=== PATIENT | female | born 1955 | race Caucasian/White ===

== ENCOUNTER 2017-09-27 14:32 | Inpatient (IN) | payer BC ==
[~2017-09-27] VITALS: Ht 157.5 cm; Wt 132.9 kg
[2017-09-27] MEDS ORDERED: MORPHINE SULFATE 2 MG/ML SYR IV PRN (15:30)
[2017-09-27] MEDS ORDERED: LEXAPRO10 MG PO (17:26)
[2017-09-27] MEDS ORDERED: CIPRO500 MG PO (17:26)
[2017-09-27] MEDS ORDERED: ASPIRIN81 MG PO (17:26)
[2017-09-27] MEDS ORDERED: ATORVASTATIN CA20 MG PO (17:26)
[2017-09-27] MEDS ORDERED: BACLOFEN10 MG PO (17:26)
[2017-09-27] MEDS ORDERED: DIAZEPAM5 MG PO (17:26)
[2017-09-27] MEDS ORDERED: LYRICA50 MG PO (17:26)
[2017-09-27] MEDS ORDERED: VITAMIN D250000 UNIT PO (17:26)
[2017-09-27] MEDS ORDERED: OXYCONTIN10 MG PO (17:26)
[2017-09-27] MEDS ORDERED: FUROSEMIDE40 MG PO (17:26)
[2017-09-27] MEDS ORDERED: COREG12.5 MG PO (17:26)
[2017-09-27] MEDS ORDERED: PERCOCET 10-321 EACH PO (17:26)
[2017-09-27] MEDS ORDERED: DOXYCYCLINE HY100 MG PO (17:26)
[2017-09-27] MEDS ORDERED: FERROUS SULFAT325 MG PO (17:26)
[2017-09-27] MEDS ORDERED: POTASSIUM CHLO10 ME1 PO (17:26)
[2017-09-27] MEDS ORDERED: NORVASC5 MG PO (17:26)
[2017-09-27] MEDS ORDERED: METHOTREXATE2.5 MG PO (17:26)
[2017-09-27 17:29] LABS: BASOPHILS # (AUTO) 0.1 (0.0-0.1); BASOPHILS % 0.9 % (0.0-1.0); EOSINOPHILS # (AUTO) 0.7 (0.0-0.4); EOSINOPHILS % 12.2 % (0.0-6.0); HEMATOCRIT 36.1 % (34.2-44.1); HEMOGLOBIN 11.1 g/dL (12.0-16.0); LYMPHOCYTES # (AUTO) 1.6 (1.0-3.2); LYMPHOCYTES % 27.2 % (18.0-39.1); MEAN CORPUSCULAR HEMOGLOBIN 26.3 pg (28-32); MEAN CORPUSCULAR HGB CONC 30.7 g/dL (31-35); MEAN CORPUSCULAR VOLUME 85.5 fL (81-99); MONOCYTES # (AUTO) 0.8 (0.2-0.8); MONOCYTES % 13.2 % (4.4-11.3); NEUTROPHILS # (AUTO) 2.7 (2.1-6.9); NEUTROPHILS % 46.2 % (38.7-80.0); PLATELET COUNT 209 x10e3/uL (140-360); RED BLOOD COUNT 4.22 x10e6/uL (3.6-5.1)
[2017-09-27 17:35] LABS: CLARITY,URINE CLEAR (CLEAR); COLOR,URINE YELLOW (YELLOW); KETONES,URINE NEGATIVE (NEGATIVE); LEUKOCYTE ESTERASE ,URINE NEGATIVE (NEGATIVE); NITRITE,URINE NEGATIVE (NEGATIVE); PROTEIN,URINE DIPSTICK NEGATIVE (NEGATIVE); URINE UROBILINOGEN 0.2 mg/dL (0.2 - 1)
[2017-09-27 17:36] LABS: BILIRUBIN,URINE NEGATIVE (NEGATIVE)
[2017-09-27 17:38] LABS: ALBUMIN 3.7 g/dL (3.5-5.0); ALBUMIN/GLOBULIN RATIO 0.9 (0.8-2.0); ANION GAP 12.9 mmol/L (8-16); CALCIUM 9.6 mg/dL (8.4-10.2); CREATININE, SERUM 0.94 mg/dL (0.57-1.11); POTASSIUM 3.9 mmol/L (3.5-5.1)
[2017-09-27 17:41] LABS: EPITHELIAL CELLS,URINE FEW /LPF
[2017-09-27] MEDS: MEROPENEM 500 MG VIAL IV SCH (17:47)
[2017-09-27] MEDS: VANCOMYCIN 1GM/NS 250 ML 250 ML IV SCH (17:47)
[2017-09-27] MEDS ORDERED: MEROPENEM 500MG 500 MG in SODIUM CHLORIDE 0.9% 50ML 50 ML IV SCH (18:00)
[2017-09-27 20:00] VITALS: BP 160/69
[2017-09-27] MEDS ORDERED: KETOROLAC TROMETHAMINE 30 MG/ML VIAL IV STA (20:06)
[2017-09-27 23:45] VITALS: BP 160/69
[2017-09-28] VITALS (7 sets, daily range): BP systolic 140–172; BP diastolic 52–82
[2017-09-28] MEDS: MEROPENEM 500 MG VIAL IV SCH ×5 (00:04→23:32)
[2017-09-28] MEDS: MORPHINE SULFATE 2 MG/ML SYR IV PRN ×5 (00:04→19:45)
[2017-09-28] MEDS: CARVEDILOL 12.5 MG TAB PO SCH ×2 (00:31→09:00)
[2017-09-28] MEDS ORDERED: SODIUM CHLORIDE 0.9% 250ML 250 ML ONE (03:46)
[2017-09-28] MEDS: VANCOMYCIN 1GM/NS 250 ML 250 ML IV SCH ×2 (04:12→15:17)
[2017-09-28 06:15] LABS: BASOPHILS % 0.6 % (0.0-1.0); EOSINOPHILS # (AUTO) 0.7 (0.0-0.4); EOSINOPHILS % 10.3 % (0.0-6.0); HEMATOCRIT 37.8 % (34.2-44.1); HEMOGLOBIN 11.6 g/dL (12.0-16.0); LYMPHOCYTES # (AUTO) 1.2 (1.0-3.2); LYMPHOCYTES % 16.3 % (18.0-39.1); MEAN CORPUSCULAR HEMOGLOBIN 26.3 pg (28-32); MEAN CORPUSCULAR HGB CONC 30.7 g/dL (31-35); MEAN CORPUSCULAR VOLUME 85.7 fL (81-99); MONOCYTES # (AUTO) 0.7 (0.2-0.8); MONOCYTES % 10.2 % (4.4-11.3); NEUTROPHILS # (AUTO) 4.5 (2.1-6.9); NEUTROPHILS % 62.3 % (38.7-80.0); PLATELET COUNT 230 x10e3/uL (140-360); RED BLOOD COUNT 4.41 x10e6/uL (3.6-5.1); RED CELL DISTRIBUTION WIDTH 21.9 % (11.7-14.4)
[2017-09-28 06:34] LABS: ALBUMIN 3.4 g/dL (3.5-5.0); ALBUMIN/GLOBULIN RATIO 0.9 (0.8-2.0); ANION GAP 14.3 mmol/L (8-16); CALCIUM 9.5 mg/dL (8.4-10.2); CREATININE, SERUM 1.06 mg/dL (0.57-1.11); POTASSIUM 4.3 mmol/L (3.5-5.1)
[2017-09-28 08:04] LABS: HYPOCHROMASIA SLIGHT; STOMATOCYTES MODERATE
[2017-09-28 08:05] LABS: ANISOCYTOSIS SLIG; PLATELET ESTIMATE ADEQUATE; PLATELET MORPHOLOGY COMMENT NORMAL; POIKILOCYTOSIS SLIGHT; RBC MORPHOLOGY COMMENT NORMAL
[2017-09-28] MEDS: AMLODIPINE BESYLATE 10 MG TAB PO SCH (15:16)
[2017-09-28] MEDS: FUROSEMIDE 40 MG TAB PO SCH (15:17)
[2017-09-28] MEDS: FERROUS SULFATE 325 MG TAB PO SCH (15:40)
[2017-09-28] MEDS: DIAZEPAM 5 MG TAB PO SCH (15:40)
[2017-09-28] MEDS ORDERED: NON-FORMULARY MEDICATION (Oxycodone Hcl/Acetaminophen (Percocet 10-325 Mg Tablet) 1 TAB) PO PRN (17:00)
[2017-09-28] MEDS ORDERED: ATORVASTATIN 20 MG TAB PO SCH (21:00)
[2017-09-28] MEDS: ATORVASTATIN 40 MG TAB PO SCH (22:00)
[2017-09-28] MEDS: PREGABALIN 50 MG CAP PO SCH (22:00)
[2017-09-28] MEDS ORDERED: DEXTROSE 5%/0.45% SOD CHL 1,000 ML IV ONE (23:45)
[2017-09-29] MEDS: OXYCODONE/ACETAMINOPHEN 5-325 1 EACH TABLET PO PRN ×2 (00:08→22:40)
[2017-09-29] MEDS: MORPHINE SULFATE 2 MG/ML SYR IV PRN ×5 (01:11→21:12)
[2017-09-29] MEDS: ONDANSETRON HCL INJ 2 MG/ML VIAL IV PRN ×2 (01:12→21:12)
[2017-09-29] MEDS: CARVEDILOL 12.5 MG TAB PO SCH ×3 (01:57→21:11)
--- NOTE | 2017-09-29 01:57 | History and Physical ---
REASON FOR CONSULTATION: Nonhealing wound on the back. HISTORY OF PRESENT ILLNESS: This patient who is well known to me. She is a 62-year-old white female, history of morbidly obese patient. She has chronic pain and she is seeing pain management. She does have a pain management doctor. A pain pump was placed couple of years ago. The patient developed ulcer on her back a few centimeters away from her pain pump. Patient originally was treated with IV antibiotic as an outpatient, then she was admitted to the hospital for a couple of days on different time. Then, we switched her to oral antibiotic. The patient has been on intravenous antibiotic on and off since last May. The patient will get better, but then the wound will get worse again. I had referred her to her pain management doctor, but he felt that the pump is not the reason because it is away from the wound. So the patient most recently was treated with intravenous antibiotic and then switched to oral antibiotic. Initially, it was getting better, but on the followup visit a few days ago, the wound looked a lot worse, and necrotic tissue. I have discussed with her that I am really concerned about the pain pump, but she does need wound debridement. The patient did agree to come in and underwent debridement. This patient who is currently lying in bed comfortably. PAST MEDICAL HISTORY: Morbidly obese patient, severe pain, hypertension, neuropathy. PAST SURGICAL HISTORY: Pain pump placement. ALLERGIES: PENICILLIN, BUT SHE DID WELL WITH CEPHALOSPORIN. REVIEW OF SYSTEMS: HEENT: There is no headache, visual changes, or hearing changes. GI: There is no nausea, no vomiting, no diarrhea. CARDIAC: There is no arrhythmia or chest pain. NEURO: No seizure activity. SKIN: There is no other rash. MUSCULOSKELETAL: She has chronic aches and pain. There is no new finding on her review of systems. Ten-point system reviewed with patient, all negative. MEDICATIONS: She is on: 1. Norvasc. 2. Lipitor. 3. . 4. Coreg. 5. Valium. 6. Lexapro. 7. Iron sulfate 325 daily. 8. Lasix 40 mg p.o. daily. 9. Methotrexate. 10. Morphine. 11. Her amlodipine is 5 mg p.o. daily. 12. Her aspirin is 81 mg daily. 13. Atorvastatin 40 mg p.o. nightly. 14. Baclofen 10 mg p.o. 2 daily. 15. Coreg 12.5 mg daily. 16. She was on oral Cipro 500 mg p.o. b.i.d. 17. She is on diazepam 2.5 mg p.o. b.i.d. 18. Doxycycline 100 mg p.o. b.i.d. 19. She is on Vitamin D2 50,000 units. 20. She is on Lexapro 10 mg p.o. 2 of them daily. 21. OxyContin 10 mg p.o. daily. 22. Percocet 10 per 325 p.o. q.6h. p.r.n. 23. Potassium chloride. LABORATORY DATA: Reviewed. Her white count is 7.17, hemoglobin is 11.6, hematocrit 37, platelet of . Her sodium 144, potassium 4.3. Creatinine 1.06, came down to 0.94. Albumin 3.4. PHYSICAL EXAMINATION: GENERAL: She is currently alert and oriented, does not seem to be in acute distress. VITALS: Stable, currently afebrile. HEENT: Normocephalic. Does not appear icteric. NECK: Supple. CHEST: Clear bilaterally. HEART: S1 and S2. No S3, S4, or murmur. ABDOMEN: Soft, obese. SKIN: She has a decubitus ulcer on the buttock area. It is about 4 x 4 cm deep with necrotic tissue. EXTREMITIES: No edema. IMPRESSION: 1. Decubitus ulcer, infected. Would need surgical debridement. Discussed with the patient. Discussed with the surgery, Dr. Mcmahan. Will start on intravenous antibiotic, but there is a good chance that she may end up losing the pain pump. The plan is to do debridement tomorrow. If debriding the necrotic tissue led to the pump, then we have to remove it, but if still away, then will try to save it. In the meantime, will put her on meropenem and vancomycin. Will follow with you. Will get the cultures. 2. Hypertension. 3. Neuropathy. 4. Morbidly obese patient. Thank you for asking me to see this patient. Job#: [id number]
[2017-09-29] MEDS: VANCOMYCIN 1GM/NS 250 ML 250 ML IV SCH ×2 (04:00→16:52)
[2017-09-29] MEDS: MEROPENEM 500 MG VIAL IV SCH ×4 (05:26→23:57)
[2017-09-29 08:08] VITALS: BP 155/71
[2017-09-29] MEDS ORDERED: OXYCODONE HCL 10 MG TAB CR PO SCH (09:00)
[2017-09-29] MEDS: PREGABALIN 50 MG CAP PO SCH ×3 (09:00→21:11)
[2017-09-29] MEDS: FERROUS SULFATE 325 MG TAB PO SCH ×2 (09:00→16:52)
[2017-09-29] MEDS ORDERED: AMLODIPINE BESYLATE 5 MG TAB PO SCH (09:00)
[2017-09-29] MEDS ORDERED: PREGABALIN 50 MG CAP PO SCH (09:00)
[2017-09-29] MEDS: OXYCODONE HCL 20 MG TAB CR PO SCH (09:00)
[2017-09-29] MEDS: DIAZEPAM 5 MG TAB PO SCH ×2 (09:00→16:52)
[2017-09-29] MEDS: POTASSIUM CHLORIDE 10 MEQ TABCR PO SCH (09:00)
[2017-09-29] MEDS: BACLOFEN 10 MG TAB PO SCH ×2 (09:00→23:57)
[2017-09-29] MEDS: FUROSEMIDE 40 MG TAB PO SCH (09:00)
[2017-09-29] MEDS: ESCITALOPRAM OXALATE 10 MG TAB PO SCH ×2 (09:00→22:11)
[2017-09-29] MEDS: METHOTREXATE SOD 2.5 MG TAB PO SCH (09:00)
[2017-09-29 09:15] VITALS: BP 155/71
[2017-09-29] MEDS: AMLODIPINE BESYLATE 10 MG TAB PO SCH (09:15)
[2017-09-29] MEDS ORDERED: MUPIROCIN 2% OINT 22 GM TUBE ONE (12:15)
[2017-09-29] MEDS ORDERED: BACITRACIN 50,000 UNIT VIAL ONE (12:15)
[2017-09-29] MEDS ORDERED: BUPIVACAINE HCL 0.5% INJ 30 ML VIAL INJ ONE (13:08)
[2017-09-29] MEDS ORDERED: FENTANYL CITRATE/PF 100MCG/2 ML INJ ONE ×2 (14:01→17:59)
[2017-09-29 14:27] VITALS: BP 151/69
--- NOTE | 2017-09-29 15:16 | Operative Report ---
DATE OF PROCEDURE: PREOPERATIVE DIAGNOSIS: Wound left buttock, possible infected pain pump. POSTOPERATIVE DIAGNOSIS: Partial thickness wound left buttock. PROCEDURE: Excision of necrotic wound left buttock and layered closure of soft tissues. ANESTHESIA: General. INDICATIONS: The patient is a 62-year-old female who has an indwelling pain pump that was placed approximately 2010. She has a wound directly over the pain pump of an undetermined thickness, and there is concern that it may communicate with the pump and there may be infection in and around the pump. The risks, benefits and alternatives of treatment were discussed with the patient and her . They are prepared to undergo the procedures outlined. DETAILS OF PROCEDURE: Patient was marked preoperatively in the holding area. She was brought to the operating theater, and after the induction of adequate general anesthesia, she was prepped and draped in a right lateral decubitus position. A time out was performed. The procedure was begun by marking out the necrotic tissue approximately 1 to 1.5 cm beyond the edges of the wound. The incisions were marked out. The incisions were then made through the skin and subcutaneous tissues. All bleeding was controlled using the electrocautery. The incision was deepened through the subcutaneous tissues until the entire necrotic portion of the wound was completely excised. The wound did not communicate with the space around the pump, and there was no evidence of separation or of any abscess formation. The necrotic wound was then sent for permanent pathologic examination. The wound was irrigated with antibiotic-containing saline and was made hemostatic using the electrocautery. A layered closure was performed utilizing 2-0 Vicryl in interrupted fashion to close the subcutaneous space off and finally 2-0 nylon in an interrupted horizontal mattress fashion to approximate the epidermis and dermal tissues. Xeroform gauze, Bactroban ointment and a sterile dressing were applied. The estimated blood loss of the procedure was approximately 15 to 25 mL. She tolerated the procedure well, was brought to the recovery room in satisfactory condition. She was then readmitted to her hospital bed for further care and treatment. Job#: [id number] EV
--- NOTE | 2017-09-29 16:11 | Consultation ---
DATE OF CONSULTATION: September 29, 2017 NO DICTATION Job#: [id number] DG
--- NOTE | 2017-09-29 16:17 | Consultation ---
DATE OF CONSULTATION: September 28, 2017 PLASTIC SURGERY CONSULTATION REQUESTED BY: Dr. Tanner. CONSULTATION IS REQUESTED OF: Janneth Mcmahan, Plastic Surgery. CHIEF COMPLAINT: Possible infected pain pump left buttock. HISTORY OF PRESENT ILLNESS: The patient is a 62-year-old female who states that she had an indwelling epidural pain pump placed approximately 2010. The pain pump was placed in the left buttock region. Around May or so she noticed breakdown of the skin directly over the pain pump. Local wound care was initiated; however, the process continued and there is now necrotic skin and subcutaneous tissue in the area. There is concern that this communicates with the space around the pain pump and that there may be infection around the pump. Consultation is now requested for evaluation and management. The history of present illness is as noted above. PERTINENT PHYSICAL EXAMINATION: The patient is afebrile. The white blood cell count is 4.5. There is a 2.5 cm long by 1.5 cm wide what appears to be full thickness necrotic wound directly over the pain pump in the region of the left buttock. There is no purulence noted with the wound. Digital examination of the wound reveals the pain pump within the tissues beneath it, however there is no visible exposed pain pump. There is a surrounding area of erythema however there does not appear to be a significant purulent component to this wound. IMPRESSION: Wound with undetermined thickness. PLAN: The depth of the wound cannot be determined accurately on physical exam. There is a possibility that this wound communicates with the pain pump and that there is infection in and around the pain pump which would necessitate removal of the pain pump. I feel the best course of action would be to take the patient to the OR and excise the entire wound and then at that time make a determination whether there is infection around the pain pump and whether it needs to be removed or whether it can remain. This was discussed with the patient in detail. The patient will be scheduled for surgery on 09/29. Thank you for allowing us to participate in the care of your patient. Sincerely, Job#: [id number] JANIS
[2017-09-29 16:25] VITALS: BP 144/62
[2017-09-29] MEDS ORDERED: LIDOCAINE HCL 2% LOCAL INJ 5 ML SDV VIAL INJ ONE (17:37)
[2017-09-29] MEDS ORDERED: ONDANSETRON HCL INJ 2 MG/ML VIAL ONE (17:37)
[2017-09-29] MEDS ORDERED: ROCURONIUM BROMIDE 10 MG/ML 5ML VIAL ONE (17:37)
[2017-09-29] MEDS ORDERED: GLYCOPYRROLATE INJ 1MG/ 5 ML SYR ONE (17:37)
[2017-09-29] MEDS ORDERED: SEVOFLURANE INHAL SOLN 250 ML PEN BTL ONE (17:37)
[2017-09-29] MEDS ORDERED: PROPOFOL IV EMULSION 10 MG/ML 20 ML VIAL ONE (17:37)
[2017-09-29] MEDS ORDERED: SUCCINYLCHOLINE 200 MG/10 ML SYR ONE (17:37)
[2017-09-29] MEDS ORDERED: MIDAZOLAM HCL 2 MG/2 ML VIAL ONE (17:59)
[2017-09-29 20:15] VITALS: BP 180/77
[2017-09-29] MEDS: ATORVASTATIN 40 MG TAB PO SCH (21:11)
[2017-09-30] VITALS (7 sets, daily range): BP systolic 97–161; BP diastolic 49–80
[2017-09-30] MEDS: DIAZEPAM 5 MG TAB PO SCH ×3 (00:15→17:00)
[2017-09-30] MEDS: MEROPENEM 500 MG VIAL IV SCH ×3 (05:29→18:01)
[2017-09-30] MEDS: VANCOMYCIN 1GM/NS 250 ML 250 ML IV SCH ×2 (05:29→16:00)
[2017-09-30] MEDS: OXYCODONE/ACETAMINOPHEN 5-325 1 EACH TABLET PO PRN ×3 (05:30→20:44)
[2017-09-30] MEDS: METHOTREXATE SOD 2.5 MG TAB PO SCH (09:00)
[2017-09-30] MEDS: MUPIROCIN 2% OINT 22 GM TUBE TOP SCH (09:13)
[2017-09-30] MEDS: FERROUS SULFATE 325 MG TAB PO SCH ×2 (09:13→18:01)
[2017-09-30] MEDS: POTASSIUM CHLORIDE 10 MEQ TABCR PO SCH (09:13)
[2017-09-30] MEDS: PREGABALIN 50 MG CAP PO SCH ×3 (09:13→20:43)
[2017-09-30] MEDS: OXYCODONE HCL 20 MG TAB CR PO SCH (09:13)
[2017-09-30] MEDS: CARVEDILOL 12.5 MG TAB PO SCH ×2 (09:13→23:57)
[2017-09-30] MEDS: AMLODIPINE BESYLATE 10 MG TAB PO SCH (09:13)
[2017-09-30] MEDS: BACLOFEN 10 MG TAB PO SCH (09:13)
[2017-09-30] MEDS: FUROSEMIDE 40 MG TAB PO SCH (09:13)
[2017-09-30] MEDS: ATORVASTATIN 40 MG TAB PO SCH (20:43)
[2017-09-30] MEDS: ESCITALOPRAM OXALATE 10 MG TAB PO SCH (20:43)
[2017-10-01] MEDS: MEROPENEM 500 MG VIAL IV SCH ×5 (00:48→23:52)
[2017-10-01 01:28] VITALS: BP 123/61
[2017-10-01] MEDS: VANCOMYCIN 1GM/NS 250 ML 250 ML IV SCH (05:42)
[2017-10-01 06:23] VITALS: BP 165/77
[2017-10-01] MEDS: OXYCODONE HCL 20 MG TAB CR PO SCH ×2 (09:00→18:30)
[2017-10-01] MEDS: POTASSIUM CHLORIDE 10 MEQ TABCR PO SCH (09:00)
[2017-10-01] MEDS: FERROUS SULFATE 325 MG TAB PO SCH ×2 (09:00→17:00)
[2017-10-01] MEDS: CARVEDILOL 12.5 MG TAB PO SCH ×2 (09:00→23:31)
[2017-10-01] MEDS: BACLOFEN 10 MG TAB PO SCH (09:00)
[2017-10-01] MEDS: DIAZEPAM 5 MG TAB PO SCH ×2 (09:00→17:00)
[2017-10-01] MEDS: AMLODIPINE BESYLATE 10 MG TAB PO SCH (09:00)
[2017-10-01] MEDS: MUPIROCIN 2% OINT 22 GM TUBE TOP SCH (09:00)
[2017-10-01] MEDS: FUROSEMIDE 40 MG TAB PO SCH (09:00)
[2017-10-01] MEDS: PREGABALIN 50 MG CAP PO SCH ×3 (09:00→23:30)
[2017-10-01 12:00] VITALS: BP 125/60
[2017-10-01] MEDS: VANCOMYCIN 750MG/NS 150ML IVPB 150 ML IV SCH (13:45)
[2017-10-01 16:00] VITALS: BP 118/59
[2017-10-01] MEDS: OXYCODONE/ACETAMINOPHEN 5-325 1 EACH TABLET PO PRN (18:39)
[2017-10-01 20:27] VITALS: BP 133/60
[2017-10-01] MEDS: ATORVASTATIN 40 MG TAB PO SCH (23:30)
[2017-10-01] MEDS: ESCITALOPRAM OXALATE 10 MG TAB PO SCH (23:30)
[2017-10-02 00:50] VITALS: BP 112/55
[2017-10-02] MEDS: VANCOMYCIN 750MG/NS 150ML IVPB 150 ML IV SCH (01:47)
[2017-10-02] MEDS: OXYCODONE/ACETAMINOPHEN 5-325 1 EACH TABLET PO PRN (04:24)
[2017-10-02] MEDS: MEROPENEM 500 MG VIAL IV SCH ×2 (04:56→12:00)
[2017-10-02 06:04] VITALS: BP 104/53
[2017-10-02 08:00] VITALS: BP 155/69
[2017-10-02] MEDS: DIAZEPAM 5 MG TAB PO SCH (09:00)
[2017-10-02] MEDS: FUROSEMIDE 40 MG TAB PO SCH (09:00)
[2017-10-02] MEDS: POTASSIUM CHLORIDE 10 MEQ TABCR PO SCH (09:00)
[2017-10-02] MEDS: BACLOFEN 10 MG TAB PO SCH (09:00)
[2017-10-02] MEDS: MUPIROCIN 2% OINT 22 GM TUBE TOP SCH (09:00)
[2017-10-02] MEDS: AMLODIPINE BESYLATE 10 MG TAB PO SCH (09:00)
[2017-10-02] MEDS: FERROUS SULFATE 325 MG TAB PO SCH (09:00)
[2017-10-02] MEDS: PREGABALIN 50 MG CAP PO SCH (09:00)
[2017-10-02] MEDS: CARVEDILOL 12.5 MG TAB PO SCH (09:00)
[2017-10-02] MEDS ORDERED: OXYCODONE HCL 20 MG TAB CR PO SCH (09:00)
[2017-10-02 12:00] VITALS: BP 107/53
[2017-10-02] MEDS ORDERED: DAPTOMYCIN 800 MG in SODIUM CHLORIDE 0.9% 100 ML IV SCH (14:00)
[2017-10-02 16:00] VITALS: BP 134/64
== END 2017-10-02 18:41 | disposition home or self-care (01) | DRG 571 ==
LOC: ER 14:32 → ERHOLD 19:16 → MED/SURG2 20:12
PROVIDERS: ADMIT Internal Medicine Infectious Disease; ATTEND Internal Medicine Infectious Disease
PROC: 0JQ90ZZ Repair Buttock Subcutaneous Tissue and Fascia, Open Approach (ICD-10-PCS; 2017-09-29)
PROC: 0JB90ZZ Excision of Buttock Subcutaneous Tissue and Fascia, Open Approach (ICD-10-PCS; principal; 2017-09-29 12:30)
DX: L89.322 Pressure ulcer of left buttock, stage 2 (principal); Z68.43 Body mass index [BMI] 50.0-59.9, adult; E11.42 Type 2 diabetes mellitus with diabetic polyneuropathy; I10 Essential (primary) hypertension; E66.01 Morbid (severe) obesity due to excess calories; G62.9 Polyneuropathy, unspecified; R53.81 Other malaise; G89.29 Other chronic pain; G47.33 Obstructive sleep apnea (adult) (pediatric); J44.9 Chronic obstructive pulmonary disease, unspecified; Z96.89 Presence of other specified functional implants
CPT/HCPCS: 36415; 51700; 80053; 80202; 81001; 85025; 87040; 88304; 96361; 97139; 99284; J1885; J2001; J2185; J2250; J2270; J2405; J3370; J7050; J8610